=== PATIENT | female | born 2000 | race Caucasian/White ===

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

== ENCOUNTER 2022-11-14 18:53 | Emergency (ER) | payer BC, MEDICARE ==
[~2022-11-14] VITALS: Ht 160 cm; Wt 77.1 kg
[2022-11-14 19:02] VITALS: BP_SYST 137; PULSE 110; RESP 19; TEMP 97.5; O2SAT 100
[2022-11-14] MEDS ORDERED: HYDR-500 PO (21:40)
[2022-11-14 21:41] LABS: BILIRUBIN,URINE NEGATIVE (NEGATIVE); BLOOD, URINE TRACE (NEGATIVE); CLARITY/URINE CLEAR (CLEAR); COLOR,URINE YELLOW (YELLOW); GLUCOSE,URINE NEGATIVE (NEGATIVE); KETONES,URINE NEGATIVE (NEGATIVE); LEUKOCYTE ESTERASE ,URINE TRACE (NEGATIVE); NITRITE, URINE NEGATIVE (NEGATIVE); PROTEIN URINE NEGATIVE (NEGATIVE); UROBILINOGEN,URINE 0.2 (0.2-1.0)
[2022-11-14 21:43] LABS: BACTERIA,URINE MODERATE /HPF (None Seen); MUCUS,URINE None Seen /LPF (None Seen); RBC,URINE 0-3 /HPF (0-3)
[2022-11-14 21:45] VITALS: BP_SYST 115; PULSE 71; RESP 18; O2SAT 99
== END 2022-11-14 21:45 | disposition home or self-care (01) ==
LOC: SED 18:53
DX: F41.9 Anxiety disorder, unspecified (principal); R51.9 Headache, unspecified; R42 Dizziness and giddiness; R11.0 Nausea; Z79.899 Other long term (current) drug therapy
CPT/HCPCS: 81000; 81025; 82962; 87086; 93005; 99284